=== PATIENT | female | born 1995 | race African-American/Black ===

== ENCOUNTER 2017-12-24 09:51 | Emergency (ER) | payer SELFPAY ==
[~2017-12-24] VITALS: Ht 162.6 cm; Wt 78.0 kg
[~2017-12-24 09:51] MED LIST: PREN-88
[2017-12-24] MEDS ORDERED: ONDANSETRON HCL 4MG/2ML VIAL IV STA (10:11)
[2017-12-24] MEDS ORDERED: SODIUM CHLORIDE 0.9% 1,000 ML IV ONE (10:11)
[2017-12-24 10:26] VITALS: BP 122/74
[2017-12-24 10:44] LABS: BASOPHILS % 0.6 % (0.0-2.0); EOSINOPHILS % 0.2 % (0.0-5.0); HEMATOCRIT. 30.4 % (36.0-48.0); HEMOGLOBIN. 10.7 g/dL (12.0-16.0); LYMPHOCYTES % 18.1 % (20.0-50.0); MEAN CORPUSCULAR HEMOGLOBIN 30.6 pg (28.0-32.0); MEAN CORPUSCULAR VOLUME 87.3 fL (81.0-99.0); MEAN PLATELET VOLUME 7.2 fl (7.4-10.4); MONOCYTES % 5.4 % (2.0-8.0); NEUTROPHILS % 75.7 % (40.0-76.0); PLATELET 317 x1000/uL (130-400); RED BLOOD CELL COUNT 3.48 mill/uL (4.2-5.4); RED CELL DISTRIBUTION WIDTH 13.2 % (11.6-14.6)
[2017-12-24 10:47] LABS: CHLORIDE 103 mEq/L (98-107)
[2017-12-24 10:50] LABS: INR 1.1; PARTIAL THROMBOPLASTIN TIME 26.6 sec (23.4-31.0); PROTHROMBIN TIME 11.1 sec (9.4-11.6)
[2017-12-24 11:13] LABS: B-HCG QUANTITATIVE 17274 mIU/mL (<3)
[2017-12-24 11:29] LABS: CLARITY URINE CLEAR (CLEAR); COLOR URINE YELLOW (YELLOW); KETONES URINE 3+ (NEGATIVE); LEUKOCYTE ESTERASE URINE NEGATIVE (NEGATIVE); NITRITE URINE NEGATIVE (NEGATIVE); OCCULT BLOOD URINE NEGATIVE (NEGATIVE); PROTEIN URINE NEGATIVE (NEGATIVE); SPECIFIC GRAVITY URINE 1.021 (1.005-1.030)
[2017-12-24 12:01] LABS: *AMPHETAMINES SCREEN URINE NEGATIVE (NEGATIVE); *BARBITURATES SCREEN URINE NEGATIVE (NEGATIVE); *BENZODIAZEPINES SCREEN URINE NEGATIVE (NEGATIVE)
[2017-12-24 12:02] LABS: *COCAINE SCREEN URINE NEGATIVE (NEGATIVE); CANNABINOID URINE SCREEN NEGATIVE (NEGATIVE); METHADONE URINE SCREEN NEGATIVE (NEGATIVE); OPIATES URINE SCREEN NEGATIVE (NEGATIVE); PHENCYCLIDINE URINE SCREEN NEGATIVE (NEGATIVE)
== END 2017-12-24 14:13 | disposition home or self-care (01) ==
LOC: ER 10:44
DX: O21.9 Vomiting of pregnancy, unspecified (principal); O99.012 Anemia complicating pregnancy, second trimester; D64.9 Anemia, unspecified; O26.892 Other specified pregnancy related conditions, second trimester; R10.13 Epigastric pain; R42 Dizziness and giddiness; R35.0 Frequency of micturition; R39.15 Urgency of urination; O16.2 Unspecified maternal hypertension, second trimester; Z3A.16 16 weeks gestation of pregnancy
CPT/HCPCS: 36415; 76700; 76805; 80053; 80305; 81003; 81025; 83690; 84702; 85025; 85610; 85730; 86850; 86900; 86901; 87086; 93005; 96361; 96374; 99285; J2405; J7030

== ENCOUNTER 2018-02-03 23:05 | Observation (INO) | payer MEDICAID ==
[~2018-02-03] VITALS: Ht 162.6 cm; Wt 74.4 kg
[2018-02-03] MEDS ORDERED: ASPI-1159 PO (23:27)
[2018-02-03] MEDS ORDERED: PNV1TABL50 PO (23:27)
[2018-02-04] MEDS ORDERED: ACETAMINOPHEN 500MG TABLET PO NR
[2018-02-04] MEDS ORDERED: LACTATED RINGERS 1,000 ML IV NR
== END 2018-02-04 00:50 | disposition home or self-care (01) ==
LOC: L&D 23:05
PROVIDERS: ADMIT Specialist; ATTEND Specialist
DX: O26.892 Other specified pregnancy related conditions, second trimester (principal); R10.30 Lower abdominal pain, unspecified; N89.8 Other specified noninflammatory disorders of vagina; Z3A.22 22 weeks gestation of pregnancy
CPT/HCPCS: 99281; G0378; J7120; 96360

== ENCOUNTER 2019-04-25 02:12 | Observation (INO) | payer MEDICAID ==
[~2019-04-25] VITALS: Ht 162.6 cm; Wt 76.7 kg
[~2019-04-25 02:12] MED LIST changes: +ASPI-1393 PO
== END 2019-04-25 02:50 | disposition home or self-care (01) ==
LOC: 8 EST LDRP 02:12
PROVIDERS: ADMIT Obstetrics & Gynecology; ATTEND Obstetrics & Gynecology
DX: O26.893 Other specified pregnancy related conditions, third trimester (principal); R10.30 Lower abdominal pain, unspecified; O62.9 Abnormality of forces of labor, unspecified; Z3A.37 37 weeks gestation of pregnancy
CPT/HCPCS: 99281; G0378

== ENCOUNTER 2019-06-24 16:57 | Emergency (ER) | payer MEDICAID ==
[~2019-06-24] VITALS: Ht 165.1 cm; Wt 71.0 kg
[2019-06-24 17:01] VITALS: BP 157/90
== END 2019-06-24 21:37 | disposition left against medical advice (07) ==
LOC: ER 16:57
DX: J02.9 Acute pharyngitis, unspecified (principal); R05 Cough; R13.10 Dysphagia, unspecified; Z53.21 Procedure and treatment not carried out due to patient leaving prior to being seen by health care provider

== ENCOUNTER 2022-02-27 13:21 | Emergency (ER) | payer MEDICAID ==
[~2022-02-27] VITALS: Ht 167.6 cm; Wt 89.0 kg
[~2022-02-27 13:21] MED LIST changes: -ASPI-1393 PO; +ASPI-1497 PO
[2022-02-27 13:35] VITALS: BP 179/134
[2022-02-27] MEDS ORDERED: NAPR-681 PO (16:09)
== END 2022-02-27 16:16 | disposition home or self-care (01) ==
LOC: ER 13:33
DX: N64.4 Mastodynia (principal); I10 Essential (primary) hypertension
CPT/HCPCS: 81025; 99282